=== PATIENT | female | born 1970 | race Two or more races ===

== ENCOUNTER 2022-07-22 18:36 | Inpatient (IN) | payer OTHER ==
[~2022-07-22] VITALS: Ht 167.6 cm; Wt 93.9 kg
[2022-07-25] MEDS ORDERED: FAMOTIDINE40 MG (16:26)
[2022-07-25] MEDS ORDERED: CETIRIZINE HCL10 MG (16:26)
[2022-07-25] MEDS ORDERED: PHENTERMINE H37.5 M1 (16:26)
[2022-07-25] MEDS ORDERED: ESOMEPRAZOLE MA40 MG (16:26)
== END 2022-07-26 18:50 | disposition home or self-care (01) | DRG 392 ==
LOC: ER 18:36 → MEDJ 07-23 09:09 → ICU-2 07-23 09:09 → MEDJ 07-23 09:47
PROVIDERS: ADMIT Specialist; ATTEND Specialist
PROC: BW21YZZ Computerized Tomography (CT Scan) of Abdomen and Pelvis using Other Contrast (ICD-10-PCS; principal; 2022-07-23)
DX: K57.32 Diverticulitis of large intestine without perforation or abscess without bleeding (principal); K76.0 Fatty (change of) liver, not elsewhere classified; R16.0 Hepatomegaly, not elsewhere classified; R10.32 Left lower quadrant pain; Z98.84 Bariatric surgery status; Z90.49 Acquired absence of other specified parts of digestive tract; Z20.822 Contact with and (suspected) exposure to COVID-19

== ENCOUNTER 2024-11-03 01:17 | Emergency (ER) | payer OTHER ==
[~2024-11-03] VITALS: Ht 167.6 cm; Wt 88.0 kg
[~2024-11-03 01:17] MED LIST: CETIRIZINE HCL10 MG; ESOMEPRAZOLE MA40 MG; FAMOTIDINE40 MG; PHENTERMINE H37.5 M1
[2024-11-03] MEDS ORDERED: KETOROLAC TROMETHAMINE 60 MG VIAL IM ONE (01:30)
[2024-11-03] MEDS ORDERED: TRAMADOL HCL 50 MG TABLET PO ONE (02:45)
== END 2024-11-03 03:12 | disposition home or self-care (01) ==
LOC: ER 01:17
DX: S52.502A Unspecified fracture of the lower end of left radius, initial encounter for closed fracture (principal); S00.93XA Contusion of unspecified part of head, initial encounter; W18.39XA Other fall on same level, initial encounter; Y93.89 Activity, other specified; Y92.018 Other place in single-family (private) house as the place of occurrence of the external cause; Y99.9 Unspecified external cause status; Z88.0 Allergy status to penicillin

== ENCOUNTER 2024-11-06 16:28 | Outpatient (CLI) | payer OTHER | END 2024-11-06 16:34 | disposition home or self-care (01) | LOC: RAD 16:28 | PROVIDERS: ATTEND Orthopaedic Surgery | DX: D68.9 Coagulation defect, unspecified (principal); Z03.818 Encounter for observation for suspected exposure to other biological agents ruled out; Z20.828 Contact with and (suspected) exposure to other viral communicable diseases ==